=== PATIENT | male | born 1955 | race Caucasian/White ===

== ENCOUNTER 2022-02-24 12:17 | Outpatient (CLI) | payer MEDICARE | END 2022-02-24 12:18 | disposition home or self-care (01) | LOC: CSHLAB 12:17 | PROVIDERS: ATTEND Internal Medicine Gastroenterology | DX: Z20.822 Contact with and (suspected) exposure to COVID-19 (principal); Z12.11 Encounter for screening for malignant neoplasm of colon | CPT/HCPCS: 87811 ==

== ENCOUNTER 2022-02-27 05:51 | Day surgery (SDC) | payer MEDICARE ==
[2022-02-25 15:33] VITALS: BMI 43.0
[2022-02-27] MEDS ORDERED: PROPOFOL 40 ML ONE (07:32)
[2022-02-27] MEDS ORDERED: Lidocaine 1% PF 5 ML VIAL ONE (07:32)
[2022-02-27] MEDS ORDERED: PROPOFOL 20 ML ONE (08:00)
== END 2022-02-27 08:45 | disposition home or self-care (01) ==
LOC: CSHSDC 05:51
PROVIDERS: ATTEND Internal Medicine Gastroenterology
PROC: 0DBK8ZZ Excision of Ascending Colon, Via Natural or Artificial Opening Endoscopic (ICD-10-PCS; principal; 2022-02-27)
DX: Z12.11 Encounter for screening for malignant neoplasm of colon (principal); D12.2 Benign neoplasm of ascending colon; K57.30 Diverticulosis of large intestine without perforation or abscess without bleeding; K64.9 Unspecified hemorrhoids; I10 Essential (primary) hypertension; E78.5 Hyperlipidemia, unspecified; G47.30 Sleep apnea, unspecified; N40.0 Benign prostatic hyperplasia without lower urinary tract symptoms; Z79.899 Other long term (current) drug therapy; Z20.822 Contact with and (suspected) exposure to COVID-19
CPT/HCPCS: 88305; J2704